=== PATIENT | male | born 2000 | race Caucasian/White ===

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

== ENCOUNTER 2022-04-20 01:32 | Emergency (ER) | payer MEDICAID ==
[~2022-04-20] VITALS: Ht 185 cm; Wt 75.0 kg
[~2022-04-20 01:32] MED LIST changes: +CLIN-144 PO; -CLIN300C11 PO; -OXYM30SP NS; +OXYM30SP25 NS
[2022-04-20 01:35] VITALS: BP 156/90
[2022-04-20] MEDS ORDERED: IBUPROFEN 600 MG (MOTRIN) TAB PO ONE (01:45)
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
== END 2022-04-20 02:44 | disposition home or self-care (01) ==
LOC: EDUNIT# 01:32 → ER 01:34
DX: R07.89 Other chest pain (principal); Z20.822 Contact with and (suspected) exposure to COVID-19
CPT/HCPCS: 87636; 93005

== ENCOUNTER 2023-05-06 01:54 | Emergency (ER) | payer BC, MEDICAID ==
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
[2023-05-06] MEDS ORDERED: RX-AMOXICILLIN 500 MG CAP #3 PPK PO STA (02:48)
[2023-05-06] MEDS ORDERED: AMOX875T2 PO (02:48)
[2023-05-06 02:53] VITALS: BP 120/75
== END 2023-05-06 02:53 | disposition home or self-care (01) ==
LOC: EDUNIT# 01:54 → ER 01:57
DX: J02.9 Acute pharyngitis, unspecified (principal); Z20.822 Contact with and (suspected) exposure to COVID-19
CPT/HCPCS: 87430; 87636; 99283

== ENCOUNTER 2023-05-20 01:55 | Emergency (ER) | payer BC, MEDICAID ==
[~2023-05-20 01:55] MED LIST changes: +AMOX875T2 PO
--- NOTE | 2023-05-20 02:03 | ED EENT ---
History of Present Illness General Stated Complaint: SORE THROAT Source: patient Exam Limitations: no limitations History of Present Illness Date Seen by Provider: May 20, 2023 Time Seen by Provider: 02:03 Initial Comments Patient is a 23-year-old male who presents to the emergency department with a chief complaint of worsening sore throat. Patient states that he has had it for about 3 to 4 weeks. He was seen here in the emergency department a couple of weeks ago started on amoxicillin 875 mg twice daily for 10 days. Patient states he completed the entire course. He has not been gargling or really taking any ibuprofen or Tylenol. No fever reported. He states he has a little nausea intermittently. Slight cough periodically. No urinary complaints no diarrhea. No rashes. No other complaints of illness. Of note his strep culture came back positive for "group C" strep. Timing/Duration: gradual Severity: moderate Location: throat Associated Symptoms: other (Slight nausea and occasional cough) Allergies and Home Medications Allergies Coded Allergies: No Known Drug Allergies (Unverified , 04/22/18) Patient Home Medication List Home Medication List Reviewed: Yes Amoxicillin (Amoxicillin) 500 Mg Capsule, 1,000 MG PO BID Prescribed by: APOORVA GIL on 12/29/18 0902 Amoxicillin (Amoxicillin) 875 Mg Tablet, 875 MG PO BID Prescribed by: FELIPE DE JESUS on 05/06/23 0248 Oxymetazoline HCl (Afrin) 30 Ml [place], 2 SPRAYS NS UD Prescribed by: APOORVA GIL on 12/29/18 0902 Review of Systems Review of Systems Constitutional: see HPI Eyes: No Symptoms Reported Ears: No Symptoms Reported Nose: no symptoms reported Mouth: no symptoms reported Throat: pain Respiratory: cough (Occasional) Cardiovascular: no symptoms reported Gastrointestinal: nausea Musculoskeletal: no symptoms reported Skin: no symptoms reported Neurological: No Symptoms Reported All Other Systems Reviewed Negative Unless Noted: Yes Past Fuxiknb-Jjwpel-Pksiff Hx Immunizations Up To Date Tetanus Booster (TDap): Less than 5yrs PED Vaccines UTD: Yes First/Initial COVID19 Vaccinat: 08-19 Second COVID19 Vaccination Tha: 09-18 Third COVID19 Vaccination Date: 08-19 Past Medical History Surgeries: No Respiratory: No Cardiac: No Neurological: No Genitourinary: No Gastrointestinal: No Musculoskeletal: Yes (L WRIST FX) Fractures Endocrine: No HEENT: No Cancer: No Psychosocial: No Integumentary: No Blood Disorders: No Adverse Reaction/Blood Tranf: No Family Medical History No Pertinent Family Hx Physical Exam Vital Signs Vital Signs - First Documented 05/20/23 02:01 Temp 36.9 Pulse 68 Resp 16 B/P (MAP) 142/67 (92) Pulse Ox 99 O2 Delivery Room Air Height, Weight, BMI Height: 5'11.00" Weight: 200lbs. 4.0oz. 90.082571td; 21.00 BMI Method:Stated General Appearance: WD/WN, no apparent distress, thin Eyes: bilateral eye normal inspection, bilateral eye PERRL, bilateral eye EOMI Ears: right ear other (Occluded by cerumen); left ear auricle normal, left ear canal normal, left ear TM normal Nose: normal inspection Mouth/Throat: other (Pharyngeal erythema slightly enlarged tonsils no exudate) Neck: non-tender, full range of motion, supple Cardiovascular: regular rate, rhythm Respiratory: lungs clear, normal breath sounds, no respiratory distress, no accessory muscle use Gastrointestinal: normal bowel sounds, non tender, soft Neurologic/Psychiatric: alert, normal mood/affect, oriented x 3 Skin: normal color, warm/dry Progress/Results/Core Measures Results/Orders Lab Results Laboratory Tests Test 05/20/23 02:18 Range/Units Group A Streptococcus Screen NEGATIVE NEGATIVE My Orders Orders - AMADO BLISS MD Rapid Strep A Screen (05/20/23 02:10) Throat Culture Strep A Confirm (05/20/23 02:18) Vital Signs/I&O 05/20/23 02:01 Temp 36.9 Pulse 68 Resp 16 B/P (MAP) 142/67 (92) Pulse Ox 99 O2 Delivery Room Air Progress Progress Note : Time: 02:43 Progress Note Patient's rapid strep screen is negative. Clinically he looks well with mild to moderate erythema in the posterior pharynx and mild tonsillar enlargement without exudate. He does not have any significant anterior cervical lymphadenopathy, he is not febrile. No rashes. Low clinical concern for acute streptococcal pharyngitis. Advised the patient that we will wait on the culture and contact him if he needs antibiotics again. Recommended Chloraseptic spray, warm salt water gargles and ibuprofen. He is comfortable with plan of care. All questions are sought and answered. Patient is stable for discharge. Departure Impression Primary Impression: Pharyngitis Qualified Codes: J02.9 - Acute pharyngitis, unspecified Disposition: 01 HOME, SELF-CARE Condition: Stable Departure-Patient Inst. Decision time for Depature: 02:44 Referrals: [facility] [place] [facility],LOCAL PHYSICIAN (PCP) Primary Care Physician Patient Instructions: Sore throat in adults Add. Discharge Instructions: Drink plenty of fluids to stay well-hydrated. Take [id number] ibuprofen 3 tablets which is 600 mg every 6 hours with food as needed for pain. Warm salt water gargles will help with the inflammation and soreness in your throat. Ikmg-han-hjpbgll Chloraseptic spray will also help with discomfort, please follow packaging instructions. Your throat culture will be resulted by Wednesday. We will contact you if you need further antibiotics. Please follow-up with a primary care physician/[facility]. Return to the emergency department for any new, concerning or emergent complaints. AMADO BLISS MD May 20, 2023 02:03
[2023-05-20] MEDS ORDERED: IBUPROFEN 600 MG (MOTRIN) TAB PO ONE (02:45)
[2023-05-20 02:53] VITALS: BP 142/67
== END 2023-05-20 02:53 | disposition home or self-care (01) ==
LOC: EDUNIT# 01:55 → ER 01:57
DX: J02.9 Acute pharyngitis, unspecified (principal); J35.1 Hypertrophy of tonsils
CPT/HCPCS: 87430; 99283